=== PATIENT | male | born 1935 | race Caucasian/White ===

== ENCOUNTER 2019-03-03 17:01 | Emergency (ER) | payer MEDICARE, OTHER ==
[2019-03-03] MEDS ORDERED: TAMSULOSIN 0.4 MG CAPSULE PO STA (17:28)
--- NOTE | 2019-03-03 17:40 | ED Physician Documentation ---
History of Present Illness - Stated complaint Stated Complaint: CATH ISSUES - Chief complaint Chief Complaint: General - History obtained from History obtained from: Patient - History of Present Illness Timing: How many days ago (2) Pain level max: 0 Pain level now: 0 - Additonal information Additional information: 83-year-old male has been self catheterizing for approximately 10 years. Has not seen a urologist for at least 6 to 7 years. He states that he had urethral "blockages" that had to be "reamed out" by his urologist in the past. He states that his bladder never functioned correctly, therefore he has been self catheterizing. States that it is become more difficult to self catheterize himself over the past 2 days. Has noticed some blood in the urine as well. No fevers. No vomiting. He used to be on Flomax, but his doctor stopped this for unclear reasons. Nothing makes it better or worse. Review of Systems Ten Systems: 10 systems reviewed and negative Constitutional: denies: Fever, Chills GI: denies: Vomiting, Diarrhea Skin: denies: Rash Musculoskeletal: denies: Neck pain, Back pain Neurologic: denies: Headache PD PAST MEDICAL HISTORY - Past Medical History Cardiovascular: Coronary artery disease, Valve disorder Respiratory: None Endocrine/Autoimmune: Type 2 diabetes Psych: None Musculoskeletal: Osteoarthritis, Other - Past Surgical History Past Surgical History: Yes Ortho: Other Cardiovascular: CABG, Valve replacement, Pacemaker - Present Medications Home Medications: Ambulatory Orders Medication Instructions Recorded Confirmed Colchicine 0.6 mg PO 08/09/15 amLODIPine [Norvasc] 0 mg PO ONCE 08/09/15 08/09/15 carvediloL [Carvedilol] 0 mg PO 08/09/15 metFORMIN [Glucophage] 0 mg PO ONCE 08/09/15 08/09/15 Cephalexin [Keflex] 500 mg PO Q6H #28 capsule 03/03/19 Tamsulosin [Flomax] 0.4 mg PO DAILY #30 capsule 03/03/19 - Allergies Allergies/Adverse Reactions: Allergies Allergy/AdvReac Type Severity Reaction Status Date / Time oxycodone HCl * Allergy Severe Anaphylaxis Verified 03/03/19 17:08 [From OxyContin] niacin Allergy Unknown Verified 03/03/19 17:08 - Social History Does the pt smoke?: No Smoking Status: Never smoker Does the pt drink ETOH?: Yes Does the pt have substance abuse?: No - Immunizations Immunizations are current?: Yes PD ED PE NORMAL - Vitals Vital signs reviewed: Yes - General General: Alert and oriented X 3, No acute distress, Well developed/nourished - HEENT HEENT: Moist mucous membranes - Neck Neck: Supple, no meningeal sign - Cardiac Cardiac: RRR - Respiratory Respiratory: No respiratory distress, Clear bilaterally - Abdomen Abdomen: Soft, Non tender, Non distended - Derm Derm: Warm and dry - Extremities Extremities: No edema - Neuro Neuro: Alert and oriented X 3 - Psych Psych: Normal mood, Normal affect Results - Vitals Vitals: Vital Signs - 24 hr 03/03/19 03/03/19 17:08 19:50 Temperature 36.5 C Heart Rate 89 77 Respiratory 14 19 Rate Blood Pressure 151/73 H 113/91 H O2 Saturation 100 92 Oxygen O2 Source Room air - Labs Labs: Microbiology 03/03/19 18:08 Urine Culture - Preliminary Urine,Catheterized CULTURE IN PROGRESS. RESULTS TO FOLLOW. Laboratory Tests 03/03/19 18:08 Urine Color YELLOW Urine Clarity CLEAR Urine pH 6.0 Ur Specific [place] <=1.005 Urine Protein NEGATIVE Urine Glucose (UA) NEGATIVE Urine Ketones NEGATIVE Urine Occult Blood SMALL H Urine Nitrite NEGATIVE Urine Bilirubin NEGATIVE Urine Urobilinogen 0.2 (NORMAL) Ur Leukocyte Esterase SMALL H Urine RBC 0-5 Urine WBC >25 H Urine WBC Clumps PRESENT Ur Squamous Epith Cells RARE Squamous Urine Bacteria Rare Ur Microscopic Review INDICATED Urine Culture Comments INDICATED PD MEDICAL DECISION MAKING - ED course Complexity details: reviewed results, re-evaluated patient, considered differential, d/w patient ED course: 83-year-old male presents to the emergency department with urinary retention. A Taylor catheter was placed, will place on Flomax and antibiotics for UTI. Daniel magdiel will leave the Taylor in place until he sees his doctor. Patient counseled regarding signs and symptoms for which I believe and urgent re-evaluation would be necessary. Patient with good understanding of and agreement to plan and is comfortable going home at this time This document was made in part using voice recognition software. While efforts are made to proofread this document, sound alike and grammatical errors may occur. Departure - Departure Disposition: 01 Home, Self Care Clinical Impression: Urinary retention UTI (urinary tract infection) Qualifiers: Urinary tract infection type: acute cystitis Hematuria presence: without hematuria Qualified Code(s): N30.00 - Acute cystitis without hematuria Condition: Good Instructions: ED Catheter Care Claudia, ED UTI Cystitis Male Follow-Up: Mackenzie Eid ARNP [Primary Care Provider] - Within 1 week Prescriptions: Cephalexin [Keflex] 500 mg PO Q6H #28 capsule Tamsulosin [Flomax] 0.4 mg PO DAILY #30 capsule Comments: Continue the Flomax at home. Return if you worsen. The catheter should stay in place until you are cleared by urology. Take all antibiotics until gone. Discharge Date/Time: 03/03/19 19:51
[2019-03-03 18:17] LABS: BILIRUBIN,URINE NEGATIVE (NEGATIVE); GLUCOSE, URINE (UA) NEGATIVE (NEGATIVE); KETONES,URINE (UA) NEGATIVE (NEGATIVE); LEUKOCYTE ESTERASE, URINE SMALL (NEGATIVE); NITRITE,URINE NEGATIVE (NEGATIVE); OCCULT BLOOD,URINE SMALL (NEGATIVE); PROTEIN,URINE NEGATIVE (NEGATIVE); UROBILINOGEN,URINE 0.2 (NORMAL) E.U./dL (NORMAL)
[2019-03-03 18:30] LABS: CLARITY,URINE CLEAR (CLEAR)
[2019-03-03 19:01] LABS: BACTERIA,URINE Rare /HPF (None Seen); RBC,URINE 0-5 /HPF (0-5); SQUAMOUS EPITHELIAL CELL,UR RARE Squamous (<= Few); WBC CLUMPS,URINE PRESENT
[2019-03-03] MEDS ORDERED: cephALEXin 250 MG CAPSULE PO STA (19:11)
[2019-03-03 19:52] VITALS: BP 113/91
== END 2019-03-03 19:51 | disposition home or self-care (01) ==
LOC: ED 17:01
DX: R33.9 Retention of urine, unspecified (principal); N30.00 Acute cystitis without hematuria; E11.9 Type 2 diabetes mellitus without complications; Z79.84 Long term (current) use of oral hypoglycemic drugs
CPT/HCPCS: 51702; 81001; 87077; 87086; 87181; 99283; 99284; A9270; 81003

== ENCOUNTER 2019-03-11 10:09 | Emergency (ER) | payer OTHER ==
[2019-03-11 10:26] VITALS: BP 110/49
--- NOTE | 2019-03-11 11:28 | ED Physician Documentation ---
PD HPI MALE - Stated complaint Stated Complaint: MALE - Chief complaint Chief Complaint: General - History obtained from History obtained from: Patient - History of Present Illness Timing - onset: Today Timing - details: Abrupt onset (the tape that holds campos tubing to leg was loose and he needed another replacement. Otherwise the campos is draining well.) Associated symptoms: Campos problem Recently seen: Emergency Dept Review of Systems Constitutional: denies: Fever, Chills GI: denies: Nausea, Vomiting PD PAST MEDICAL HISTORY - Past Medical History Cardiovascular: Coronary artery disease, Valve disorder Respiratory: None Endocrine/Autoimmune: Type 2 diabetes Psych: None Musculoskeletal: Osteoarthritis, Other - Past Surgical History Past Surgical History: Yes Ortho: Other Cardiovascular: CABG, Valve replacement, Pacemaker - Present Medications Home Medications: Ambulatory Orders Medication Instructions Recorded Confirmed Colchicine 0.6 mg PO 08/09/15 amLODIPine [Norvasc] 0 mg PO ONCE 08/09/15 08/09/15 carvediloL [Carvedilol] 0 mg PO 08/09/15 metFORMIN [Glucophage] 0 mg PO ONCE 08/09/15 08/09/15 Cephalexin [Keflex] 500 mg PO Q6H #28 capsule 03/03/19 Tamsulosin [Flomax] 0.4 mg PO DAILY #30 capsule 03/03/19 - Allergies Allergies/Adverse Reactions: Allergies Allergy/AdvReac Type Severity Reaction Status Date / Time oxycodone HCl * Allergy Severe Anaphylaxis Verified 03/11/19 10:26 [From OxyContin] niacin Allergy Unknown Verified 03/11/19 10:26 - Social History Does the pt smoke?: No Smoking Status: Never smoker Does the pt drink ETOH?: Yes Does the pt have substance abuse?: No - Immunizations Immunizations are current?: Yes - POLST Patient has POLST: No PD ED PE NORMAL - Vitals Vital signs reviewed: Yes - General General: Alert and oriented X 3, No acute distress, Well developed/nourished - Abdomen Abdomen: Soft, Non tender - Male Male : Other (campos in place and draining well. ) - Back Back: No CVA TTP - Derm Derm: Normal color, Warm and dry - Neuro Neuro: Alert and oriented X 3, No motor deficit, Normal speech Results - Vitals Vitals: Vital Signs - 24 hr 03/11/19 10:21 Temperature 36.5 C Heart Rate 76 Respiratory 16 Rate Blood Pressure 110/49 L O2 Saturation 99 Oxygen O2 Source Room air Departure - Departure Disposition: 01 Home, Self Care Clinical Impression: Campos catheter problem Qualifiers: Encounter type: initial encounter Qualified Code(s): T83.9XXA - Unspecified complication of genitourinary prosthetic device, implant and graft, initial encounter Condition: Stable Record reviewed to determine appropriate education?: Yes Instructions: ED Catheter Care Campos Follow-Up: Mackenzie Eid ARNP [Primary Care Provider] - Discharge Date/Time: 03/11/19 11:58
== END 2019-03-11 11:58 | disposition home or self-care (01) ==
LOC: ED 10:09
DX: Z46.6 Encounter for fitting and adjustment of urinary device (principal); E11.9 Type 2 diabetes mellitus without complications; Z79.84 Long term (current) use of oral hypoglycemic drugs
CPT/HCPCS: 99282; 99283

== ENCOUNTER 2020-08-08 10:07 | Outpatient (CLI) | payer OTHER | END 2020-08-08 10:08 | disposition critical access hospital (66) | LOC: EMS 10:07 | DX: G81.94 Hemiplegia, unspecified affecting left nondominant side (principal); G81.93 Hemiplegia, unspecified affecting right nondominant side; R20.0 Anesthesia of skin | CPT/HCPCS: A0425; A0429 ==

== ENCOUNTER 2020-08-08 10:30 | Emergency (ER) | payer OTHER ==
--- NOTE | 2020-08-08 11:54 | ED Physician Documentation ---
History of Present Illness - Stated complaint Stated Complaint: GEN WEAKNESS - Chief complaint Chief Complaint: Neuro - Additonal information Additional information: This is an 85-year-old male that presents the emergency department for eval uation of generalized weakness that has been getting progressively worse since April 2020. He reports that this is about the same time that he received his second dose of COVID-19. He reports that over the last few months he gets very short of breath when walking to the mailbox and doing simple tasks at home. He also states that he feels like his fingers do not work as well as they would though he does admit to a history of arthritis. He has had no chest pain, nausea vomiting. Denies any leg swelling. He denies any focal arm or leg weakness. Does have a history of a pacemaker. He denies any syncopal episodes. This gentleman does live alone and is attended to by primary care provider through the [facility]. He states that today he felt weaker than normal so he came to the ER. He has been discussing with a niece in [place] whether or not it is time to go live with her. Review of Systems Constitutional: denies: Fever, Chills Eyes: reports: Reviewed and negative Nose: reports: Reviewed and negative Throat: reports: Reviewed and negative Cardiac: reports: Reviewed and negative Respiratory: reports: Dyspnea GI: denies: Abdominal Pain, Nausea, Vomiting, Constipation : denies: Dysuria, Frequency, Hesitancy Skin: denies: Rash, Lesions Musculoskeletal: denies: Neck pain, Back pain Neurologic: reports: Generalized weakness. denies: Focal weakness, Numbness, Difficulty speaking, Syncope, Seizure, Confused, Headache, Head injury, LOC Psychiatric: denies: Depressed, Suicidal PD PAST MEDICAL HISTORY - Past Medical History Cardiovascular: Coronary artery disease, Valve disorder Respiratory: None Endocrine/Autoimmune: Type 2 diabetes Psych: None Musculoskeletal: Osteoarthritis, Other - Past Surgical History Past Surgical History: Yes Ortho: Other Cardiovascular: CABG, Valve replacement, Pacemaker - Present Medications Home Medications: Ambulatory Orders Medication Instructions Recorded Confirmed Colchicine 0.6 mg PO DAILY 08/09/15 08/08/20 amLODIPine [Norvasc] 10 mg PO DAILY 08/09/15 08/08/20 metFORMIN [Glucophage] 500 mg PO BID 08/09/15 08/08/20 Atorvastatin Calcium 40 mg PO HS 08/08/20 08/08/20 Losartan [Cozaar] 25 mg PO DAILY 08/08/20 08/08/20 allopurinoL [Zyloprim] 300 mg PO DAILY 08/08/20 08/08/20 carvediloL [Coreg] 12.5 mg PO BID 08/08/20 08/08/20 - Allergies Allergies/Adverse Reactions: Allergies Allergy/AdvReac Type Severity Reaction Status Date / Time oxycodone HCl * Allergy Severe Anaphylaxis Verified 08/08/20 10:39 [From OxyContin] niacin Allergy Unknown Verified 08/08/20 10:39 - Social History Does the pt smoke?: No Smoking Status: Never smoker Does the pt drink ETOH?: Yes Does the pt have substance abuse?: No - Immunizations Immunizations are current?: Yes - POLST Patient has POLST: No PD ED PE EXPANDED - General General: Alert, No acute distress - Cardiac Cardiac: Regular Rate, Radial strong equal, Pedal strong equal, Cap refill < 2 sec - Respiratory Respiratory: Clear to ausultation darnell. No: Distress, Labored - Abdomen Abdomen: Normal Bowel sounds. No: Tender to palpation - Derm Derm: Normal color, Warm and dry. No: Rash - Extremities Extremities: Normal. No: Deformity, Tenderness, Pedal edema bilateral, Right calf TTP/cord, Left calf TTP/cord - Neuro Neuro: Alert and Oriented X 3, CNII-XII intact, Other (Patient able to raise both arms and legs off the bed and keep them elevated.) - GCS Eye Opening: Spontaneous Motor: Obeys Commands Verbal: Oriented Total: 15 - Psych Psych: Normal Results - Vitals Vitals: Vital Signs - 24 hr 08/08/20 08/08/20 10:40 13:09 Temperature 36.5 C Heart Rate 71 75 Respiratory 18 19 Rate Blood Pressure 143/81 H 143/68 H O2 Saturation 100 97 Oxygen O2 Source Room air - EKG (time done) 1131 Rate: Rate (enter#) (69) Rhythm: Paced Computer interpretation: Agree with computer (Paced rythm;; no further analysis attempted) - Labs Labs: Laboratory Tests 08/08/20 08/08/20 08/08/20 12:26 12:26 12:26 WBC 7.2 RBC 3.83 L Hgb 12.5 L Hct 35.7 L MCV 93.2 MCH 32.6 H MCHC 35.0 RDW 13.4 Plt Count 149 MPV 9.4 Neut # (Auto) 5.0 Lymph # (Auto) 1.3 L [place] # (Auto) 0.6 Eos # (Auto) 0.2 Baso # (Auto) 0.1 Absolute Nucleated RBC 0.00 Nucleated RBC % 0.0 Sodium 125 L Potassium 3.8 Chloride 92 L Carbon Dioxide 25 Anion Gap 8.0 BUN 20 Creatinine 0.8 Estimated GFR (MDRD) 92 Glucose 167 H Calcium 8.8 Total Bilirubin 0.8 AST 26 ALT 22 Alkaline Phosphatase 56 B-Natriuretic Peptide Total Protein 7.1 Albumin 4.2 Globulin 2.9 Albumin/Globulin Ratio 1.4 Lipase 20 L TSH 0.73 Thyroxine (T4) 8.32 Urine Color Urine Clarity Urine pH Ur Specific [place] Urine Protein Urine Glucose (UA) Urine Ketones Urine Occult Blood Urine Nitrite Urine Bilirubin Urine Urobilinogen Ur Leukocyte Esterase Urine RBC Urine WBC Ur Squamous Epith Cells Urine Bacteria Ur Microscopic Review Urine Culture Comments 08/08/20 08/08/20 12:26 12:47 WBC RBC Hgb Hct MCV MCH MCHC RDW Plt Count MPV Neut # (Auto) Lymph # (Auto) Branch # (Auto) Eos # (Auto) Baso # (Auto) Absolute Nucleated RBC Nucleated RBC % Sodium Potassium Chloride Carbon Dioxide Anion Gap BUN Creatinine Estimated GFR (MDRD) Glucose Calcium Total Bilirubin AST ALT Alkaline Phosphatase B-Natriuretic Peptide 227 H Total Protein Albumin Globulin Albumin/Globulin Ratio Lipase TSH Thyroxine (T4) Urine Color YELLOW Urine Clarity CLEAR Urine pH 6.0 Ur Specific [place] 1.015 Urine Protein NEGATIVE Urine Glucose (UA) NEGATIVE Urine Ketones NEGATIVE Urine Occult Blood NEGATIVE Urine Nitrite NEGATIVE Urine Bilirubin NEGATIVE Urine Urobilinogen 1 (NORMAL) Ur Leukocyte Esterase SMALL H Urine RBC 0-5 Urine WBC 0-3 Ur Squamous Epith Cells FEW Squamous Urine Bacteria Few Ur Microscopic Review INDICATED Urine Culture Comments INDICATED - Rads (name of study) CT head Radiology: Final report received (Cute intracranial process. Moderate atrophy and chronic microvascular ischemic changes.) CXR Radiology: Final report received (Mild pulmonary vascular congestion. No focal infiltrate, pleural effusion or pneumothorax.) PD MEDICAL DECISION MAKING - ED course Complexity details: reviewed results ED course: 85-year-old male presents the emergency department for evaluation of progressive weakness since April of this year. He feels like he no longer has the stamina he used to. He gets short of breath when walking longer distances. He has not had any focal neuro deficits or focal weakness in his arms or legs. On exam his NIHSS is 0. Screening EKG shows a paced rhythm no further interpretation is possible. Chest x-ray suggest some mild pulmonary vascular congestion. He has no hypoxia on room air. BNP only mildly elevated at just over 200. However no crackles or lower extremity edema therefore doubt CHF. Screening labs do show a mild but improved anemia. His sodium is 125 today. Other sodium was even lower at 121. I did discuss with this gentleman that I suspect his progressive weakness is likely a consequence of age progression. I did offer him observation admission to the hospital for the hyponatremia but he declined to that. He needs to continue to work to sell his home as he is moving to [place] in September. This gentleman will be discharged home. I have Recommended that he discuss with his primary care provider this ER visit. He may benefit from physical therapy. He is advised to always use his walker when ambulating. Departure - Departure Disposition: 01 Home, Self Care Clinical Impression: Generalized weakness, Hyponatremia Condition: Stable Record reviewed to determine appropriate education?: Yes Comments: When you are seen in the ER today for generalized weakness that is gotten worse over the last few months. The CT of your head today did not show any worrisome findings. Your chest x-ray also did not show any worrisome findings. The most significant finding on your labs today was a mildly decreased sodium of 125 mg/dL. I do encourage you to salt your food a little more. We did discuss the possibility of admitting you to the hospital on an observation status to see if improving her sodium level improved your weakness but you declined this option. Please discuss this ED visit with your primary care provider. You would benefit from a physical therapy. Always use your walker when walking. If at any point you feel that you have focal weakness in your arms or legs, have slurred speech, droopy face or feel that you cannot be alone please call 911 and come to the emergency department immediately.
--- NOTE | 2020-08-08 12:22 | XRAY Report ---
PROCEDURE: Chest 1 View X-Ray INDICATIONS: chest pain TECHNIQUE: One view of the chest was acquired. COMPARISON: None. FINDINGS: Surgical changes and devices: Left chest wall pacemaker leads are seen in the region of right atrium and right ventricle. Median sternotomy wires are seen. Lungs and pleura: No pleural effusions or pneumothorax. Mild pulmonary vascular congestion is seen. No focal infiltrate. Mediastinum: Mediastinal contours appear normal. Heart size is enlarged. Bones and chest wall: No suspicious bony lesions. Overlying soft tissues appear unremarkable. IMPRESSION: Mild pulmonary vascular congestion. No focal infiltrate, pleural effusion or pneumothorax. Reviewed by: Reza Vora MD on 08/08/2020 12:21 PM PDT Approved by: Reza Vora MD on 08/08/2020 12:21 PM PDT Station ID: [id number]
[2020-08-08 12:35] LABS: BASOPHILS # (AUTO) 0.1 10^3/uL (0.0-0.1); BASOPHILS % (AUTO) 0.7 %; EOSINOPHILS # (AUTO) 0.2 10^3/uL (0.0-0.7); EOSINOPHILS % (AUTO) 3.3 %; HCT - HEMATOCRIT 35.7 % (42.0-52.0); HGB - HEMOGLOBIN 12.5 g/dL (14.0-18.0); LYMPHOCYTES # (AUTO) 1.3 10^3/uL (1.5-3.5); LYMPHOCYTES % (AUTO) 17.5 %; MEAN CORPUSCULAR HEMOGLOBIN 32.6 pg (27.0-31.0); MEAN CORPUSCULAR VOLUME 93.2 fL (80.0-94.0); MEAN PLATELET VOLUME 9.4 fL (7.4-11.4); MONOCYTES # (AUTO) 0.6 10^3/uL (0.0-1.0); MONOCYTES % (AUTO) 8.6 %; NEUTROPHILS % (AUTO) 69.5 %; PLT - PLATELET COUNT 149 10^3/uL (130-450); RED BLOOD COUNT 3.83 10^6/uL (4.70-6.10); RED CELL DISTRIBUTION WIDTH 13.4 % (12.0-15.0); WHITE BLOOD COUNT 7.2 x10^3/uL (4.8-10.8)
[2020-08-08 12:46] LABS: ALBUMIN 4.2 g/dL (3.2-5.5); ALBUMIN/GLOBULIN RATIO 1.4 (1.0-2.2); BILIRUBIN,TOTAL 0.8 mg/dL (0.2-1.0); CALCIUM 8.8 mg/dL (8.5-10.3); CREATININE 0.8 mg/dL (0.6-1.2); POTASSIUM 3.8 mmol/L (3.5-5.0); TOTAL PROTEIN 7.1 g/dL (6.7-8.2)
[2020-08-08 12:56] LABS: T4 (THYROXINE) 8.32 ug/dL (6.09-12.23)
--- NOTE | 2020-08-08 12:57 | CT Report ---
PROCEDURE: HEAD WO INDICATIONS: generalized weakness TECHNIQUE: Noncontrast 4.5 mm thick angled axial sections acquired from the foramen magnum to the vertex. For r adiation dose reduction, the following was used: automated exposure control, adjustment of mA and/or kV according to patient size. COMPARISON: None. FINDINGS: Image quality: Excellent. The ventricular system and cortical sulci demonstrate atrophy, consistent for patient's stated age. There are areas of hypodensity in the periventricular and subcortical white matter. There is no acut e intra or extra-axial fluid collection. No acute hemorrhage, mass lesion or midline shift. Brainst em is unremarkable. Globes are symmetrical. Sinuses are aerated. Osseous structures are intact. IMPRESSION: 1. No acute intracranial process. 2. Moderate atrophy and chronic microvascular ischemic changes. Reviewed by: Marlen Brito MD on 08/08/2020 12:55 PM PDT Approved by: Marlen Brito MD on 08/08/2020 12:55 PM PDT Station ID: [id number]
[2020-08-08 13:00] LABS: THYROID STIMULATING HORMONE 0.73 uIU/mL (0.34-5.60)
[2020-08-08 13:20] LABS: BILIRUBIN,URINE NEGATIVE (NEGATIVE); CLARITY,URINE CLEAR (CLEAR); GLUCOSE, URINE (UA) NEGATIVE (NEGATIVE); KETONES,URINE (UA) NEGATIVE (NEGATIVE); LEUKOCYTE ESTERASE, URINE SMALL (NEGATIVE); NITRITE,URINE NEGATIVE (NEGATIVE); OCCULT BLOOD,URINE NEGATIVE (NEGATIVE); PROTEIN,URINE NEGATIVE (NEGATIVE); UROBILINOGEN,URINE 1 (NORMAL) E.U./dL (NORMAL)
[2020-08-08 13:22] LABS: BACTERIA,URINE Few /HPF (None Seen); RBC,URINE 0-5 /HPF (0-5); SQUAMOUS EPITHELIAL CELL,UR FEW Squamous (<= Few); WBC,URINE 0-3 /HPF (0-3)
[2020-08-08 13:56] VITALS: BP 144/80
== END 2020-08-08 13:56 | disposition home or self-care (01) ==
LOC: EDUNIT# → ED 10:30
DX: E87.1 Hypo-osmolality and hyponatremia (principal); R53.1 Weakness; Z95.0 Presence of cardiac pacemaker; E11.9 Type 2 diabetes mellitus without complications; Z79.84 Long term (current) use of oral hypoglycemic drugs
CPT/HCPCS: 36415; 80053; 81001; 81003; 83690; 83880; 84436; 84443; 85025; 87086; 93005; 99284

== ENCOUNTER 2020-08-10 04:42 | Outpatient (CLI) | payer OTHER | END 2020-08-10 04:43 | disposition critical access hospital (66) | LOC: EMS 04:42 | DX: R53.1 Weakness (principal) | CPT/HCPCS: A0425; A0429 ==

== ENCOUNTER 2020-08-10 05:01 | Emergency (ER) | payer OTHER ==
--- NOTE | 2020-08-10 05:35 | ED Physician Documentation ---
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 He was seen 2 days ago in our emergency department and found to have hyponatremia, but did not want to stay for hospitalization. He comes in again today because yesterday around 5 PM he was weak while walking with his walker and sent to the floor. He then again woke up this morning to self cath but his legs were too weak to move. He called EMS after he was able to struggle to the phone. Denies lightheadedness, nausea, pain anywhere, dysuria, fever, focal neuro deficits. Social history - Patient's is recently and he currently lives at home alone. He is planning to move in with his granddaughter in [place] in September. Review of Systems Ten Systems: 10 systems reviewed and negative Constitutional: denies: Fever, Chills, Myalgias Cardiac: denies: Chest pain / pressure Respiratory: denies: Dyspnea GI: denies: Abdominal Pain, Nausea, Vomiting, Diarrhea : denies: Dysuria Skin: denies: Rash Musculoskeletal: denies: Back pain Neurologic: reports: Generalized weakness Endocrine: denies: Polydypsia, Polyuria PD PAST MEDICAL HISTORY - Past Medical History Past Medical History: Yes Cardiovascular: Coronary artery disease, Valve disorder Respiratory: None Endocrine/Autoimmune: Type 2 diabetes Psych: None Musculoskeletal: Osteoarthritis, Other - Past Surgical History Past Surgical History: Yes Ortho: Other Cardiovascular: CABG, Valve replacement, Pacemaker - Present Medications Home Medications: Ambulatory Orders Medication Instructions Recorded Confirmed Colchicine 0.6 mg PO DAILY 08/09/15 08/10/20 amLODIPine [Norvasc] 10 mg PO DAILY 08/09/15 08/10/20 metFORMIN [Glucophage] 500 mg PO BID 08/09/15 08/10/20 Atorvastatin Calcium 40 mg PO HS 08/08/20 08/10/20 Losartan [Cozaar] 25 mg PO DAILY 08/08/20 08/10/20 allopurinoL [Zyloprim] 300 mg PO DAILY 08/08/20 08/10/20 carvediloL [Coreg] 12.5 mg PO BID 08/08/20 08/10/20 - Allergies Allergies/Adverse Reactions: Allergies Allergy/AdvReac Type Severity Reaction Status Date / Time oxycodone HCl * Allergy Severe Anaphylaxis Verified 08/10/20 05:05 [From OxyContin] niacin Allergy Unknown Verified 08/10/20 05:05 - Social History Does the pt smoke?: No Smoking Status: Never smoker Does the pt drink ETOH?: Yes Does the pt have substance abuse?: No - Immunizations Immunizations are current?: Yes - POLST Patient has POLST: No PD ED PE NORMAL - Vitals Vital signs reviewed: Yes - General General: Alert and oriented X 3, No acute distress, Well developed/nourished, Other (Elderly appearing) - HEENT HEENT: Atraumatic, PERRL, EOMI - Neck Neck: Supple, no meningeal sign, No bony TTP - Cardiac Cardiac: RRR - Respiratory Respiratory: No respiratory distress, Clear bilaterally - Abdomen Abdomen: Non tender, Non distended - Derm Derm: Normal color, Warm and dry - Extremities Extremities: No deformity - Neuro Neuro: Alert and oriented X 3 - Psych Psych: Normal mood, Normal affect Results - Vitals Vitals: Vital Signs - 24 hr 08/10/20 08/10/20 05:06 05:09 Temperature 36.9 C 36.9 C Heart Rate 75 75 Respiratory 14 14 Rate Blood Pressure 155/72 H 155/72 H O2 Saturation 98 98 Oxygen O2 Source Room air - Labs Labs: Laboratory Tests 08/10/20 05:39 WBC 8.5 RBC 4.41 L Hgb 14.3 Hct 41.5 L MCV 94.1 H MCH 32.4 H MCHC 34.5 RDW 13.5 Plt Count 147 MPV 9.3 Neut # (Auto) 6.0 Lymph # (Auto) 1.3 L [place] # (Auto) 0.6 Eos # (Auto) 0.5 Baso # (Auto) 0.1 Absolute Nucleated RBC 0.00 Nucleated RBC % 0.0 PD MEDICAL DECISION MAKING - ED course ED course: 85-year-old man presented with generalized weakness, found to have hyponatremia on lab work 2 days ago. Plan likely admission if lab work continues to show hyponatremia given his persisistent symptomatic electrolyte derangement. patient endorsed to incoming daytime MD pending lab results.
[2020-08-10 05:47] LABS: BASOPHILS # (AUTO) 0.1 10^3/uL (0.0-0.1); BASOPHILS % (AUTO) 0.6 %; EOSINOPHILS # (AUTO) 0.5 10^3/uL (0.0-0.7); EOSINOPHILS % (AUTO) 6.1 %; HCT - HEMATOCRIT 41.5 % (42.0-52.0); HGB - HEMOGLOBIN 14.3 g/dL (14.0-18.0); LYMPHOCYTES # (AUTO) 1.3 10^3/uL (1.5-3.5); LYMPHOCYTES % (AUTO) 15.7 %; MEAN CORPUSCULAR HEMOGLOBIN 32.4 pg (27.0-31.0); MEAN CORPUSCULAR HGB CONC 34.5 g/dL (32.0-36.0); MEAN CORPUSCULAR VOLUME 94.1 fL (80.0-94.0); MEAN PLATELET VOLUME 9.3 fL (7.4-11.4); MONOCYTES # (AUTO) 0.6 10^3/uL (0.0-1.0); MONOCYTES % (AUTO) 7.2 %; PLT - PLATELET COUNT 147 10^3/uL (130-450); RED BLOOD COUNT 4.41 10^6/uL (4.70-6.10); RED CELL DISTRIBUTION WIDTH 13.5 % (12.0-15.0); WHITE BLOOD COUNT 8.5 x10^3/uL (4.8-10.8)
[2020-08-10 06:03] LABS: ALBUMIN 4.5 g/dL (3.2-5.5); ALBUMIN/GLOBULIN RATIO 1.3 (1.0-2.2); BILIRUBIN,TOTAL 1.1 mg/dL (0.2-1.0); CALCIUM 9.7 mg/dL (8.5-10.3); CREATININE 0.7 mg/dL (0.6-1.2); MAGNESIUM 1.6 mg/dL (1.7-2.8); POTASSIUM 3.9 mmol/L (3.5-5.0)
[2020-08-10 06:19] LABS: CHOL/HDL RATIO 2.5 (<5.0); CHOLESTEROL 122 mg/dL; HDL CHOLESTEROL 48 mg/dL; LDL CHOLESTEROL,CALCULATED 48 mg/dL; TRIGLYCERIDES 129 mg/dL; VLDL CHOLESTEROL 26 mg/dL
[2020-08-10 06:39] LABS: BILIRUBIN,URINE NEGATIVE (NEGATIVE); GLUCOSE, URINE (UA) NEGATIVE (NEGATIVE); KETONES,URINE (UA) NEGATIVE (NEGATIVE); LEUKOCYTE ESTERASE, URINE NEGATIVE (NEGATIVE); NITRITE,URINE NEGATIVE (NEGATIVE); OCCULT BLOOD,URINE NEGATIVE (NEGATIVE); PROTEIN,URINE NEGATIVE (NEGATIVE); UROBILINOGEN,URINE 0.2 (NORMAL) E.U./dL (NORMAL)
[2020-08-10] MEDS ORDERED: SODIUM CHLORIDE 0.9% 1,000 ML IV STA ×2 (06:42→08:23)
--- NOTE | 2020-08-10 06:43 | ED Physician Documentation ---
History of Present Illness - Stated complaint Stated Complaint: GEN WEAKNESS - Chief complaint Chief Complaint: General - History obtained from History obtained from: Patient - History of Present Illness Timing: How many days ago (4) - Additonal information Additional information: 85-year-old male with multiple coronary comorbidities including coronary artery disease and hypertension has begun to develop some generalized weakness and difficulty of ambulation beginning about 4 months ago and he felt this was gradually progressing and then about 4 days ago he became acutely weak unable to hold himself up at times. He was seen in the emerge department found to be hyponatremic and requested to go home. He returns to the emergency department unable to stand up to catheterize himself and he was evaluated by Dr. Campbell. PD PAST MEDICAL HISTORY - Past Medical History Past Medical History: Yes Cardiovascular: Coronary artery disease, Valve disorder Respiratory: None Endocrine/Autoimmune: Type 2 diabetes Psych: None Musculoskeletal: Osteoarthritis, Other - Past Surgical History Past Surgical History: Yes Ortho: Other Cardiovascular: CABG, Valve replacement, Pacemaker - Present Medications Home Medications: Ambulatory Orders Medication Instructions Recorded Confirmed Colchicine 0.6 mg PO DAILY 08/09/15 08/10/20 amLODIPine [Norvasc] 10 mg PO DAILY 08/09/15 08/10/20 metFORMIN [Glucophage] 500 mg PO BID 08/09/15 08/10/20 Atorvastatin Calcium 40 mg PO HS 08/08/20 08/10/20 Losartan [Cozaar] 25 mg PO DAILY 08/08/20 08/10/20 allopurinoL [Zyloprim] 300 mg PO DAILY 08/08/20 08/10/20 carvediloL [Coreg] 12.5 mg PO BID 08/08/20 08/10/20 - Allergies Allergies/Adverse Reactions: Allergies Allergy/AdvReac Type Severity Reaction Status Date / Time oxycodone HCl * Allergy Severe Anaphylaxis Verified 08/10/20 05:05 [From OxyContin] niacin Allergy Unknown Verified 08/10/20 05:05 - Social History Does the pt smoke?: No Smoking Status: Never smoker Does the pt drink ETOH?: Yes Does the pt have substance abuse?: No - Immunizations Immunizations are current?: Yes - POLST Patient has POLST: No Results - Vitals Vitals: Vital Signs - 24 hr 08/10/20 08/10/20 08/10/20 05:06 05:09 07:09 Temperature 36.9 C 36.9 C 36.8 C Heart Rate 75 75 74 Respiratory 14 14 22 Rate Blood Pressure 155/72 H 155/72 H 133/67 H O2 Saturation 98 98 99 08/10/20 08:20 Temperature 36.3 C L Heart Rate 79 Respiratory 16 Rate Blood Pressure 178/76 H O2 Saturation 98 Oxygen O2 Source Room air - Labs Labs: Laboratory Tests 08/10/20 08/10/20 08/10/20 05:39 05:39 05:39 WBC 8.5 RBC 4.41 L Hgb 14.3 Hct 41.5 L MCV 94.1 H MCH 32.4 H MCHC 34.5 RDW 13.5 Plt Count 147 MPV 9.3 Neut # (Auto) 6.0 Lymph # (Auto) 1.3 L [place] # (Auto) 0.6 Eos # (Auto) 0.5 Baso # (Auto) 0.1 Absolute Nucleated RBC 0.00 Nucleated RBC % 0.0 Sodium 129 L Potassium 3.9 Chloride 95 L Carbon Dioxide 24 Anion Gap 10.0 BUN 15 Creatinine 0.7 Estimated GFR (MDRD) 107 Glucose 119 H Calcium 9.7 Magnesium 1.6 L Total Bilirubin 1.1 H AST 32 ALT 29 Alkaline Phosphatase 72 Total Protein 8.0 Albumin 4.5 Globulin 3.5 Albumin/Globulin Ratio 1.3 Triglycerides 129 Cholesterol 122 LDL Cholesterol, Calc 48 VLDL Cholesterol 26 HDL Cholesterol 48 L LDL/HDL Ratio 1.0 Cholesterol/HDL Ratio 2.5 Lipase 25 Urine Color Urine Clarity Urine pH Ur Specific [place] Urine Protein Urine Glucose (UA) Urine Ketones Urine Occult Blood Urine Nitrite Urine Bilirubin Urine Urobilinogen Ur Leukocyte Esterase Urine RBC Urine WBC Ur Squamous Epith Cells Urine Bacteria Urine Culture Comments Urine Sodium 08/10/20 08/10/20 06:30 06:30 WBC RBC Hgb Hct MCV MCH MCHC RDW Plt Count MPV Neut # (Auto) Lymph # (Auto) [place] # (Auto) Eos # (Auto) Baso # (Auto) Absolute Nucleated RBC Nucleated RBC % Sodium Potassium Chloride Carbon Dioxide Anion Gap BUN Creatinine Estimated GFR (MDRD) Glucose Calcium Magnesium Total Bilirubin AST ALT Alkaline Phosphatase Total Protein Albumin Globulin Albumin/Globulin Ratio Triglycerides Cholesterol LDL Cholesterol, Calc VLDL Cholesterol HDL Cholesterol LDL/HDL Ratio Cholesterol/HDL Ratio Lipase Urine Color YELLOW Urine Clarity CLEAR Urine pH 6.0 Ur Specific [place] 1.010 Urine Protein NEGATIVE Urine Glucose (UA) NEGATIVE Urine Ketones NEGATIVE Urine Occult Blood NEGATIVE Urine Nitrite NEGATIVE Urine Bilirubin NEGATIVE Urine Urobilinogen 0.2 (NORMAL) Ur Leukocyte Esterase NEGATIVE Urine RBC 0-5 Urine WBC 0-3 Ur Squamous Epith Cells NONE SEEN Urine Bacteria Rare Urine Culture Comments NOT INDICATED Urine Sodium 74.0 Procedures - IVC sono (time) 0640 Bedside IVC sono: IVC measures (cm) (0.80), Dehydration (est 2 liter deficit) PD MEDICAL DECISION MAKING - ED course Complexity details: reviewed old records, reviewed results, re-evaluated patient, considered differential, d/w patient ED course: 85-year-old male with generalized weakness has had some difficulty getting up to go to the bathroom and he is found to be dehydrated on interrogation the inferior vena cava. He is administered intravenous saline feels improved he is road tested here in the emergency department and he is able to independently get up use his walker and ambulate in the emergency department he wants to go home. The social work is consulted regarding extra help for the patient until his relative arrives on 16 August. Departure - Departure Disposition: 01 Home, Self Care Clinical Impression: Generalized weakness, Dehydration Condition: Stable Instructions: ED Dehydration Follow-Up: DALIA NOEL ARNP [Primary Care Provider] - Discharge Date/Time: 08/10/20 12:11
[2020-08-10 06:46] LABS: CLARITY,URINE CLEAR (CLEAR)
[2020-08-10 06:57] LABS: BACTERIA,URINE Rare /HPF (None Seen); RBC,URINE 0-5 /HPF (0-5); SQUAMOUS EPITHELIAL CELL,UR NONE SEEN (<= Few); WBC,URINE 0-3 /HPF (0-3)
[2020-08-10 08:22] VITALS: BP 178/76
--- NOTE | 2020-08-10 08:22 | XRAY Report ---
PROCEDURE: Chest 1 View X-Ray INDICATIONS: Chest Pain TECHNIQUE: One view of the chest was acquired. COMPARISON: Chest x-ray one view, 08/08/2020 FINDINGS: Surgical changes and devices: There is a cardiac pacemaker with leads in stable position sternotomy. Lungs and pleura: No pleural effusions or pneumothorax. Lungs are clear. Mediastinum: Mediastinal contours appear normal. Heart size is normal. Bones and chest wall: No suspicious bony lesions. Overlying soft tissues appear unremarkable. IMPRESSION: Stable exam. No acute cardiopulmonary process. No significant discrepancy with the preliminary interpretation. Reviewed by: Orlando Thornton MD on 08/10/2020 8:20 AM PDT Approved by: Orlando Thornton MD on 08/10/2020 8:20 AM PDT Station ID: [id number]
== END 2020-08-10 12:11 | disposition home or self-care (01) ==
LOC: EDUNIT# → SUPCPDRO 05:01 → ED 05:01
DX: R53.1 Weakness (principal); E86.0 Dehydration; Z79.84 Long term (current) use of oral hypoglycemic drugs; Z95.0 Presence of cardiac pacemaker; I10 Essential (primary) hypertension; I25.810 Atherosclerosis of coronary artery bypass graft(s) without angina pectoris; E11.9 Type 2 diabetes mellitus without complications
CPT/HCPCS: 36415; 51701; 80053; 80061; 81001; 83690; 83721; 83735; 83930; 83935; 84300; 85025; 87086; 99284

== ENCOUNTER 2020-08-12 05:26 | Outpatient (CLI) | payer OTHER | END 2020-08-12 05:27 | disposition critical access hospital (66) | LOC: EMS 05:26 | DX: R53.1 Weakness (principal) | CPT/HCPCS: A0425; A0429 ==

== ENCOUNTER 2020-08-12 05:48 | Emergency (ER) | payer OTHER ==
[2020-08-12 06:21] LABS: BASOPHILS # (AUTO) 0.1 10^3/uL (0.0-0.1); BASOPHILS % (AUTO) 0.7 %; EOSINOPHILS # (AUTO) 0.5 10^3/uL (0.0-0.7); EOSINOPHILS % (AUTO) 7.8 %; HCT - HEMATOCRIT 38.3 % (42.0-52.0); HGB - HEMOGLOBIN 13.2 g/dL (14.0-18.0); LYMPHOCYTES # (AUTO) 1.2 10^3/uL (1.5-3.5); LYMPHOCYTES % (AUTO) 17.3 %; MEAN CORPUSCULAR HEMOGLOBIN 32.8 pg (27.0-31.0); MEAN CORPUSCULAR HGB CONC 34.5 g/dL (32.0-36.0); MEAN PLATELET VOLUME 9.3 fL (7.4-11.4); MONOCYTES # (AUTO) 0.6 10^3/uL (0.0-1.0); MONOCYTES % (AUTO) 8.8 %; NEUTROPHILS # (AUTO) 4.5 10^3/uL (1.5-6.6); PLT - PLATELET COUNT 147 10^3/uL (130-450); RED BLOOD COUNT 4.03 10^6/uL (4.70-6.10); RED CELL DISTRIBUTION WIDTH 13.7 % (12.0-15.0)
[2020-08-12 06:40] LABS: ALBUMIN 4.3 g/dL (3.2-5.5); ALBUMIN/GLOBULIN RATIO 1.3 (1.0-2.2); BILIRUBIN,TOTAL 1.3 mg/dL (0.2-1.0); CALCIUM 9.5 mg/dL (8.5-10.3); CREATININE 0.8 mg/dL (0.6-1.2); MAGNESIUM 1.6 mg/dL (1.7-2.8); POTASSIUM 3.9 mmol/L (3.5-5.0); TOTAL PROTEIN 7.6 g/dL (6.7-8.2)
[2020-08-12] MEDS ORDERED: FOLIC ACID INJ 1 MG, THIAMINE INJ 100 MG, MAGNESIUM SULFATE 2 GM, MULTIVITAMIN 10 ML in... IV STA ×5 (07:00)
[2020-08-12] MEDS ORDERED: MAGNESIUM SULFATE 1 GM/2 ML VIAL ONE (07:21)
[2020-08-12] MEDS ORDERED: THIAMINE 100 MG/1 ML 2 ML MDV ONE (07:21)
--- NOTE | 2020-08-12 07:46 | ED Physician Documentation ---
History of Present Illness - Stated complaint Stated Complaint: WEAKNESS X 1 WEEK, BLE WEEKNESS, BUE NUMBNESS - Chief complaint Chief Complaint: Neuro - History obtained from History obtained from: Patient - History of Present Illness Timing: Today - Additonal information Additional information: 85-year-old diabetic male with a history of coronary artery disease who self caths has developed weakness over the past several months and more profound over the past week. He has had 2 visits to the emergency department for weakness within the past week. He found this morning that he was not able to stand up from his bed when he attempted to get up to catheterize himself at 3:00 in the morning. He has had similar issue over the past week and he was found to be dehydrated on interrogation the inferior vena cava on his last visit and was able to gain his strength enough to be able to get up and ambulate after hydration ( 2 days ago). He does have a relative who is coming to his home to help who will be arriving on August 16. We were not able to get the patient more help in the meantime. He does have friends in the area the check on him. Review of Systems Constitutional: denies: Fever Eyes: denies: Decreased vision Ears: denies: Ear pain Nose: denies: Congestion Throat: denies: Sore throat Cardiac: denies: Chest pain / pressure, Palpitations, Pedal edema, Calf pain Respiratory: denies: Dyspnea, Cough GI: denies: Abdominal Pain, Nausea, Vomiting, Constipation, Diarrhea : denies: Dysuria Skin: denies: Rash Musculoskeletal: denies: Neck pain, Back pain, Extremity pain Neurologic: reports: Generalized weakness. denies: Focal weakness, Numbness PD PAST MEDICAL HISTORY - Past Medical History Past Medical History: Yes Cardiovascular: Coronary artery disease, Valve disorder Respiratory: None Endocrine/Autoimmune: Type 2 diabetes Psych: None Musculoskeletal: Osteoarthritis, Other - Past Surgical History Past Surgical History: Yes Ortho: Other Cardiovascular: CABG, Valve replacement, Pacemaker - Present Medications Home Medications: Ambulatory Orders Medication Instructions Recorded Confirmed amLODIPine [Norvasc] 10 mg PO DAILY 08/09/15 08/12/20 metFORMIN [Glucophage] 500 mg PO BID 08/09/15 08/12/20 Atorvastatin Calcium 40 mg PO HS 08/08/20 08/12/20 Losartan [Cozaar] 25 mg PO DAILY 08/08/20 08/12/20 allopurinoL [Zyloprim] 300 mg PO DAILY 08/08/20 08/12/20 carvediloL [Coreg] 12.5 mg PO BID 08/08/20 08/12/20 Aspirin [Aspirin EC] 325 mg PO DAILY 08/12/20 08/12/20 [place]-3 Fatty Acids [Fish Oil 1,200 mg PO DAILY 08/12/20 08/12/20 Concentrate] - Allergies Allergies/Adverse Reactions: Allergies Allergy/AdvReac Type Severity Reaction Status Date / Time oxycodone HCl * Allergy Severe Anaphylaxis Verified 08/12/20 06:02 [From OxyContin] niacin Allergy Unknown Verified 08/12/20 06:02 - Social History Does the pt smoke?: No Smoking Status: Never smoker Does the pt drink ETOH?: Yes Does the pt have substance abuse?: No - Immunizations Immunizations are current?: Yes - POLST Patient has POLST: No PD ED PE NORMAL - Vitals Vital signs reviewed: Yes (hypertensive) - General General: Alert and oriented X 3, No acute distress, Well developed/nourished - HEENT HEENT: Atraumatic, PERRL, EOMI - Neck Neck: Supple, no meningeal sign, No bony TTP - Cardiac Cardiac: RRR, No murmur - Respiratory Respiratory: No respiratory distress, Clear bilaterally - Abdomen Abdomen: Normal bowel sounds, Soft, Non tender, Non distended, No organomegaly - Back Back: No CVA TTP, No spinal TTP - Derm Derm: Normal color, Warm and dry, No rash - Extremities Extremities: No deformity, No edema - Neuro Neuro: Alert and oriented X 3, residential child care counselor 2-12 intact, No motor deficit, No sensory deficit, Normal speech Eye Opening: Spontaneous Motor: Obeys Commands Verbal: Oriented GCS Score: 15 - Psych Psych: Normal mood, Normal affect Results - Vitals Vitals: Vital Signs - 24 hr 08/12/20 08/12/20 08/12/20 05:50 06:20 06:50 Temperature 36.3 C L Heart Rate 77 75 77 Respiratory 18 17 19 Rate Blood Pressure 163/71 H 140/63 H 136/48 H O2 Saturation 99 99 95 08/12/20 08/12/20 08/12/20 10:05 13:01 15:00 Temperature Heart Rate 95 75 76 Respiratory 20 21 19 Rate Blood Pressure 126/57 L 136/59 H 136/56 H O2 Saturation 96 96 96 08/12/20 17:26 Temperature Heart Rate 71 Respiratory 16 Rate Blood Pressure 112/51 L O2 Saturation 97 Oxygen O2 Source Room air - EKG (time done) 0736 Rate: Rate (enter#) (94) Rhythm: Paced Compare to prior EKG: Unchanged from prior EKG (SPT 08-08-2020 no changes) Computer interpretation: Agree with computer - Labs Labs: Laboratory Tests 08/12/20 08/12/20 08/12/20 06:12 06:12 06:12 WBC 7.0 RBC 4.03 L Hgb 13.2 L Hct 38.3 L MCV 95.0 H MCH 32.8 H MCHC 34.5 RDW 13.7 Plt Count 147 MPV 9.3 Neut # (Auto) 4.5 Lymph # (Auto) 1.2 L [place] # (Auto) 0.6 Eos # (Auto) 0.5 Baso # (Auto) 0.1 Absolute Nucleated RBC 0.00 Nucleated RBC % 0.0 Sodium 133 L Potassium 3.9 Chloride 97 L Carbon Dioxide 25 Anion Gap 11.0 BUN 16 Creatinine 0.8 Estimated GFR (MDRD) 92 Glucose 119 H Calcium 9.5 Magnesium 1.6 L Total Bilirubin 1.3 H AST 25 ALT 28 Alkaline Phosphatase 69 Total Creatine Kinase 269 CK-MB (CK-2) Troponin I High Sens 266.0 H* Total Protein 7.6 Albumin 4.3 Globulin 3.3 Albumin/Globulin Ratio 1.3 Lipase 26 08/12/20 08/12/20 08/12/20 09:00 09:00 09:00 WBC RBC Hgb Hct MCV MCH MCHC RDW Plt Count MPV Neut # (Auto) Lymph # (Auto) [place] # (Auto) Eos # (Auto) Baso # (Auto) Absolute Nucleated RBC Nucleated RBC % Sodium Potassium Chloride Carbon Dioxide Anion Gap BUN Creatinine Estimated GFR (MDRD) Glucose Calcium Magnesium Total Bilirubin AST ALT Alkaline Phosphatase Total Creatine Kinase 251 CK-MB (CK-2) 7.0 H Troponin I High Sens 238.5 H* Total Protein Albumin Globulin Albumin/Globulin Ratio Lipase Procedures - IVC sono (time) 0730 Bedside IVC sono: IVC measures (cm) (0.92), IVC collapsed c insp (cm) (complete), Dehydration (est 1-2 liter deficit) PD MEDICAL DECISION MAKING - ED course Complexity details: reviewed results, re-evaluated patient, considered differential, d/w patient ED course: 85-year-old male with a pacer in place and history of diabetes and coronary disease has developed progressive weakness and he has been found to be dehydrated while here in the emergency department had some improvement in his weakness with IV hydration. Despite that he is awake and again early this morning to cath himself and found himself again too weak. We evaluated him here in the emerge department again today found him again to be dehydrated gave him some fluid in the form of a banana bag and we obtained an electrocardiogram and blood work. This included a troponin. This was found to be elevated in the 200 range and a repeat was done 2 hours later and this was slightly lower. My concern became an acute event earlier in the day with a lowering troponin now. He does not have kidney disease. He has had a progressive weakness over the past 4 months and especially over the past week.Schedule I consulted Dr. Pathak cardiology at the hospital he recommended that we check CPK and CT CPK-MB as there may be a spillover from skeletal muscle if he has a destructive process.This however was normal. He recommended transfer for evaluation to include echo which we will not have available until Friday next week. I spoke to the hospitalist Dr. Estevez at [facility] who accepts in transfer. Dr. Pathak has recommended that we not place the patient on heparin. Departure - Departure Disposition: 02 Transfer Acute Care Hosp Clinical Impression: Dehydration, NSTEMI (non-ST elevated myocardial infarction)
[2020-08-12] MEDS ORDERED: carvediloL 12.5 MG TABLET PO STA (13:49)
[2020-08-12] MEDS ORDERED: LOSARTAN 50 MG TABLET PO STA (13:49)
[2020-08-12] MEDS ORDERED: amLODIPine 5 MG TABLET PO STA (13:50)
[2020-08-12] MEDS ORDERED: metFORMIN 500 MG TABLET PO STA (13:50)
[2020-08-12 17:27] VITALS: BP 112/51
== END 2020-08-12 19:14 | disposition short-term general hospital (02) ==
LOC: EDUNIT# → ED 05:48
DX: I21.4 Non-ST elevation (NSTEMI) myocardial infarction (principal); I25.709 Atherosclerosis of coronary artery bypass graft(s), unspecified, with unspecified angina pectoris; E86.0 Dehydration; Z96.0 Presence of urogenital implants; Z95.0 Presence of cardiac pacemaker; E11.9 Type 2 diabetes mellitus without complications; Z79.84 Long term (current) use of oral hypoglycemic drugs
CPT/HCPCS: 36415; 80053; 82550; 82553; 83690; 83735; 84484; 85025; 93005; 96365; 99283; 99285; A9270; J3411

== ENCOUNTER 2020-08-12 19:00 | Outpatient (CLI) | payer OTHER | END 2020-08-12 19:01 | disposition short-term general hospital (02) | LOC: EMS 19:00 | PROVIDERS: ATTEND Emergency Medicine | DX: I21.4 Non-ST elevation (NSTEMI) myocardial infarction (principal); R53.1 Weakness | CPT/HCPCS: A0425; A0426 ==